=== PATIENT | male | born 1995 | race Caucasian/White ===

== ENCOUNTER → 2016-05-31 | Outpatient (REF) | LOC: M LAB 14:36 | PROVIDERS: ATTEND Nurse Practitioner Adult Health | DX: Z00.00 Encounter for general adult medical examination without abnormal findings (principal) ==

== ENCOUNTER → 2023-04-06 | Outpatient (CLI) | payer OTHER | LOC: M RAD 15:36 | PROVIDERS: ATTEND Podiatrist Foot & Ankle Surgery | DX: M25.372 Other instability, left ankle (principal); M25.572 Pain in left ankle and joints of left foot ==